=== PATIENT | male | born 1985 | race African-American/Black ===

== ENCOUNTER 2022-07-03 12:32 | Emergency (ER) | payer OTHER ==
[2022-07-03] MEDS ORDERED: Ibuprofen 200 MG TAB ONE (13:04)
[2022-07-03 14:06] LABS: SARS-CoV-2 NAA Rapid Test Not Detected (NotDetected)
[2022-07-03] MEDS ORDERED: methylPREDNISolone Sod Succ/PF 125 MG/2 ML VIAL ONE (15:00)
== END 2022-07-03 15:15 | disposition home or self-care (01) ==
LOC: CSHERS 12:32
DX: J02.9 Acute pharyngitis, unspecified (principal); Z20.822 Contact with and (suspected) exposure to COVID-19
CPT/HCPCS: 87081; 87430; 96372; 99283; J2930